=== PATIENT | male | born 1975 | race Caucasian/White ===

== ENCOUNTER → 2018-05-29 08:56 | Outpatient (CLI) | payer BC | END | disposition home or self-care (01) | LOC: D.CT 05-15 09:00 | DX: R11.2 Nausea with vomiting, unspecified (principal); R06.6 Hiccough; R12 Heartburn ==

== ENCOUNTER → 2018-12-06 07:05 | Outpatient (CLI) | payer BC | END | disposition home or self-care (01) | LOC: D.US 07:05 | PROVIDERS: ATTEND Internal Medicine Gastroenterology | DX: K76.0 Fatty (change of) liver, not elsewhere classified (principal) ==